=== PATIENT | male | born 1965 | race Caucasian/White ===

== ENCOUNTER 2018-06-15 15:42 | Inpatient (IN) | payer MEDICAID ==
[~2018-06-15] VITALS: Ht 185.4 cm; Wt 89.3 kg
[2018-06-15] MEDS ORDERED: vancomycin/NS 1 GM ADD-VANTAGE 250 ML IV ONE (16:40)
[2018-06-15] MEDS ORDERED: levoFLOXACIN-Levaquin 750MG/D5 150 ML IV ONE (16:40)
[2018-06-15] MEDS ORDERED: normal saline 1000ML IV soln IV ONE (16:40)
[2018-06-15 17:07] LABS: BASOPHILS % (AUTO) 0.1 % (0-1); EOSINOPHILS # (AUTO) 0.1 X10'3 (0-0.9); EOSINOPHILS % (AUTO) 0.6 % (0-6); LYMPHOCYTES # (AUTO) 0.5 X10'3 (1.1-4.8); LYMPHOCYTES % (AUTO) 3.2 % (21-51); MEAN CORPUSCULAR HEMOGLOBIN 29.3 PG (27.0-31.0); MEAN CORPUSCULAR HGB CONC 33.4 % (33.0-36.5); MEAN CORPUSCULAR VOLUME 87.7 FL (78-98); MEAN PLATELET VOLUME 7.9 FL (7.4-10.4); MONOCYTES # (AUTO) 0.7 X10'3 (0-0.9); NEUTROPHILS # (AUTO) 15.2 X10'3 (1.8-7.7); NEUTROPHILS % (AUTO) 92.1 % (42-75); PLATELET COUNT 294 X10'3 (140-440); RED BLOOD COUNT 3.42 X10'6 (4.70-6.10); RED CELL DISTRIBUTION WIDTH 13.9 % (11.5-14.5); WHITE BLOOD COUNT 16.5 X10'3 (4.5-11.0)
[2018-06-15 17:27] LABS: PARTIAL THROMBOPLASTIN TIME 49 SECONDS (22-32); PROTHROMBIN TIME 10.5 SECONDS (9.0-12.0)
[2018-06-15 17:35] LABS: ALANINE AMINOTRANSFERASE 13 U/L (12-78); ALBUMIN 2.1 G/DL (3.4-5.0); ALBUMIN/GLOBULIN RATIO 0.4 (1.1-1.5); ALKALINE PHOSPHATASE 139 IU/L (46-116); ANION GAP 10 (8-16); ASPARTATE AMINO TRANSFERASE 18 U/L (10-37); BILIRUBIN,TOTAL 0.6 MG/DL (0.1-1.0); BLOOD UREA NITROGEN 28 MG/DL (7-18); BUN/CREATININE RATIO 17.7 (5.4-32.0); CALCIUM 8.5 MG/DL (8.5-10.1); CHLORIDE 98 MMOL/L (99-107); CREATININE 1.58 MG/DL (0.60-1.10); GLUCOSE 124 MG/DL (70-104); POTASSIUM 3.6 MMOL/L (3.5-5.1); SODIUM 133 MMOL/L (135-145); TOTAL CARBON DIOXIDE 24.8 MMOL/L (24-32); eGFR 46 ML/MIN
[2018-06-15] MEDS ORDERED: acetaminophen 325mg tablet PO ONE (18:40)
[2018-06-15 18:51] LABS: CLARITY,URINE CLEAR (Clear); COLOR,URINE YELLOW (Yellow); GLUCOSE, URINE NEGATIVE (Neg); KETONES,URINE NEGATIVE (Neg); LEUKOCYTE ESTERASE ,URINE NEGATIVE (Neg); NITRITES, URINE NEGATIVE (Neg); OCCULT BLOOD,URINE NEGATIVE (Neg); PH,URINE 5.5 (4.8-8.0); PROTEIN,URINE 30 mg/dl (Neg)
[2018-06-15 18:58] LABS: UA COLLECTION TYPE CLN CATCH MIDSTREAM
[2018-06-15 19:01] LABS: BACTERIA,URINE 1+ /HPF (Neg); MUCUS STRANDS MODERATE /LPF (Neg); RBC,URINE NONE SEEN /HPF (0-2); SQUAMOUS EPITHELIAL CELL,UR FEW /LPF (FEW); WBC,URINE 0-4 /HPF (0-4)
[2018-06-15 19:03] LABS: AMORPHOUS URATES 1+
[2018-06-15 20:09] LABS: PLATELET ESTIMATE NORMAL; TOTAL CELLS COUNTED 100; TOXIC GRANULATION 1+
[2018-06-15] MEDS ORDERED: acetaminophen 650mg rectal suppository RC PRN (20:25)
[2018-06-15] MEDS ORDERED: diphenhydrAMINE 25mg capsule PO PRN (20:25)
[2018-06-15] MEDS ORDERED: HYDROmorphone 1 mg/ml syringe IV PRN ×2 (20:25)
[2018-06-15] MEDS ORDERED: diphenhydrAMINE 50 mg/ml inj IV PRN (20:25)
[2018-06-15] MEDS ORDERED: morphine 2 MG/ML inj. syringe IV PRN ×2 (20:25)
[2018-06-15] MEDS ORDERED: metoclopramide 5 mg/ml inj IV PRN (20:25)
[2018-06-15] MEDS ORDERED: acetaminophen 325mg tablet PO PRN ×2 (20:25)
[2018-06-15] MEDS ORDERED: magnesium hydroxide 30ml (MOM) UD suspension PO PRN (20:25)
[2018-06-15] MEDS ORDERED: mag hydrox/Alum hydrox/simeth 30ml oral suspension PO PRN (20:25)
[2018-06-15] MEDS ORDERED: ondansetron/PF 4mg/2ml inj IV PRN (20:25)
[2018-06-15] MEDS ORDERED: HYDROcodone/acetaminophen 10/325mg tab PO PRN (20:25)
[2018-06-15] MEDS ORDERED: HYDROcodone/acetaminophen 5mg/325mg tablet PO PRN (20:25)
[2018-06-15] MEDS ORDERED: bisacodyl 10mg suppository rectal RC PRN (20:25)
[2018-06-15] MEDS ORDERED: TETanus/Pertussis (Acell)/Diphther VAC/PF (Tdap-Adult) 0.5ml syringe IMVAC ONE (20:30)
[2018-06-15 20:50] LABS: URINE AMPHETAMINE SCREEN POSITIVE (Neg); URINE BARBITUATE SCREEN NEGATIVE (Neg); URINE BENZODIAZEPINES SCREEN NEGATIVE (Neg); URINE CANNABINOID SCREEN NEGATIVE (Neg); URINE COCAINE SCREEN NEGATIVE (Neg); URINE METHADONE SCREEN NEGATIVE (Neg); URINE OPIATE SCREEN NEGATIVE (Neg); URINE PHENCYCLIDINE SCREEN NEGATIVE (Neg)
[2018-06-15 20:55] LABS: LIPASE 84 U/L (73-393); MAGNESIUM 1.7 MG/DL (1.5-2.4); PHOSPHORUS 1.9 MG/DL (2.3-4.5)
[2018-06-15] MEDS ORDERED: temazepam 15mg capsule PO PRN (21:00)
[2018-06-15 21:17] LABS: HIV ANTIBODY 1&2 RAPID NON-REACTIVE (Neg)
[2018-06-15 22:14] LABS: HEMOGLOBIN A1C 5.7 % (4.5-6.2)
[2018-06-15] MEDS: normal saline 1000ml 1,000 ML IV SCH (22:20)
[2018-06-15 22:37] VITALS: BP 107/68
[2018-06-15] MEDS ORDERED: NO HOME MEDS (23:42)
[2018-06-16 05:44] LABS: BASOPHILS % (AUTO) 0 % (0-1); EOSINOPHILS % (AUTO) 0.1 % (0-6); HEMATOCRIT 28.1 % (42.0-52.0); HEMOGLOBIN 9.4 g/dl (14.0-17.9); LYMPHOCYTES # (AUTO) 0.9 X10'3 (1.1-4.8); MEAN CORPUSCULAR HEMOGLOBIN 29.3 PG (27.0-31.0); MEAN CORPUSCULAR HGB CONC 33.5 % (33.0-36.5); MEAN CORPUSCULAR VOLUME 87.6 FL (78-98); MEAN PLATELET VOLUME 7.9 FL (7.4-10.4); MONOCYTES # (AUTO) 0.7 X10'3 (0-0.9); MONOCYTES % (AUTO) 5.4 % (2-12); NEUTROPHILS # (AUTO) 11.6 X10'3 (1.8-7.7); NEUTROPHILS % (AUTO) 87.5 % (42-75); PLATELET COUNT 254 X10'3 (140-440); RED BLOOD COUNT 3.21 X10'6 (4.70-6.10); RED CELL DISTRIBUTION WIDTH 14.5 % (11.5-14.5); WHITE BLOOD COUNT 13.2 X10'3 (4.5-11.0)
[2018-06-16 05:55] LABS: ALANINE AMINOTRANSFERASE 23 U/L (12-78); ALBUMIN 1.8 G/DL (3.4-5.0); ALBUMIN/GLOBULIN RATIO 0.4 (1.1-1.5); ALKALINE PHOSPHATASE 185 IU/L (46-116); ANION GAP 9 (8-16); ASPARTATE AMINO TRANSFERASE 26 U/L (10-37); BILIRUBIN,TOTAL 0.6 MG/DL (0.1-1.0); BLOOD UREA NITROGEN 19 MG/DL (7-18); BUN/CREATININE RATIO 17.6 (5.4-32.0); CALCIUM 8.2 MG/DL (8.5-10.1); CHLORIDE 106 MMOL/L (99-107); CREATININE 1.08 MG/DL (0.60-1.10); GLUCOSE 112 MG/DL (70-104); POTASSIUM 3.9 MMOL/L (3.5-5.1); SODIUM 141 MMOL/L (135-145); TOTAL CARBON DIOXIDE 26.4 MMOL/L (24-32); TOTAL PROTEIN 6.2 G/DL (6.4-8.2); eGFR 72 ML/MIN
[2018-06-16 05:58] LABS: CHOL/HDL RATIO 7.1 (0.00-4.99); CHOLESTEROL 85 MG/DL (0-200); HDL CHOLESTEROL 12 MG/DL (35-60); LDL CHOLESTEROL 54 MG/DL (50-100); TRIGLYCERIDES 71 MG/DL (20-135)
[2018-06-16 06:00] VITALS: BP 93/57
[2018-06-16] MEDS: heparin, porcine 5000 units/ml vial SQ SCH ×2 (07:12→20:02)
[2018-06-16] MEDS: normal saline 1000ml 1,000 ML IV SCH (07:13)
[2018-06-16 10:00] VITALS: BP 95/63
[2018-06-16] MEDS ORDERED: doxycycline hyclate 100mg tablet.DR PO SCH (17:30)
[2018-06-16] MEDS: DOXYCYCLINE 100MG CAPSULE PO SCH (17:40)
[2018-06-16 19:00] VITALS: BP 112/73
[2018-06-16] MEDS: bacitracin/polymyxin B 15 GM ointment TP SCH (20:00)
[2018-06-16] MEDS ORDERED: Potassium Cl inj 20 MEQ in normal saline 1000ml 1,000 ML IV SCH (20:23)
[2018-06-16 23:00] VITALS: BP 111/66
[2018-06-17 05:41] LABS: BASOPHILS % (AUTO) 0.2 % (0-1); EOSINOPHILS # (AUTO) 0.1 X10'3 (0-0.9); HEMATOCRIT 28.3 % (42.0-52.0); HEMOGLOBIN 9.4 g/dl (14.0-17.9); LYMPHOCYTES # (AUTO) 1.3 X10'3 (1.1-4.8); LYMPHOCYTES % (AUTO) 12.6 % (21-51); MEAN CORPUSCULAR HEMOGLOBIN 29.6 PG (27.0-31.0); MEAN CORPUSCULAR HGB CONC 33.1 % (33.0-36.5); MEAN CORPUSCULAR VOLUME 89.3 FL (78-98); MEAN PLATELET VOLUME 7.9 FL (7.4-10.4); MONOCYTES # (AUTO) 0.8 X10'3 (0-0.9); MONOCYTES % (AUTO) 7.1 % (2-12); NEUTROPHILS # (AUTO) 8.4 X10'3 (1.8-7.7); NEUTROPHILS % (AUTO) 79.1 % (42-75); PLATELET COUNT 312 X10'3 (140-440); RED BLOOD COUNT 3.16 X10'6 (4.70-6.10); RED CELL DISTRIBUTION WIDTH 14.3 % (11.5-14.5); WHITE BLOOD COUNT 10.6 X10'3 (4.5-11.0)
[2018-06-17 06:01] LABS: ALANINE AMINOTRANSFERASE 19 U/L (12-78); ALBUMIN 1.6 G/DL (3.4-5.0); ALBUMIN/GLOBULIN RATIO 0.4 (1.1-1.5); ALKALINE PHOSPHATASE 152 IU/L (46-116); ANION GAP 8 (8-16); ASPARTATE AMINO TRANSFERASE 16 U/L (10-37); BILIRUBIN,TOTAL 0.3 MG/DL (0.1-1.0); BLOOD UREA NITROGEN 16 MG/DL (7-18); BUN/CREATININE RATIO 16.3 (5.4-32.0); CALCIUM 8.5 MG/DL (8.5-10.1); CHLORIDE 107 MMOL/L (99-107); CREATININE 0.98 MG/DL (0.60-1.10); GLUCOSE 90 MG/DL (70-104); POTASSIUM 3.7 MMOL/L (3.5-5.1); SODIUM 141 MMOL/L (135-145); TOTAL PROTEIN 5.9 G/DL (6.4-8.2); eGFR 80 ML/MIN
[2018-06-17 09:12] VITALS: BP 117/78
[2018-06-17] MEDS: heparin, porcine 5000 units/ml vial SQ SCH (09:36)
[2018-06-17] MEDS: DOXYCYCLINE 100MG CAPSULE PO SCH (09:36)
[2018-06-17] MEDS: bacitracin/polymyxin B 15 GM ointment TP SCH (09:37)
[2018-06-17] MEDS ORDERED: LEVO750T21 PO (10:36)
[2018-06-17] MEDS ORDERED: BACI28.32 TP (10:36)
[2018-06-17] MEDS ORDERED: DOXY-224 PO (10:36)
[2018-06-17 12:00] VITALS: BP 106/74
[2018-06-17] MEDS ORDERED: levoFLOXACIN-Levaquin 750MG/D5 150 ML IV SCH (16:00)
== END 2018-06-17 14:10 | disposition home or self-care (01) | DRG 720 ==
LOC: ER 15:43 → ED HOLD 20:23 → EDBEDREQ 21:36 → ORTHO 4S 22:13
PROVIDERS: ADMIT Family Medicine; ATTEND Internal Medicine
DX: A41.9 Sepsis, unspecified organism (principal); N17.9 Acute kidney failure, unspecified; J18.1 Lobar pneumonia, unspecified organism; E87.1 Hypo-osmolality and hyponatremia; D64.9 Anemia, unspecified; L98.499 Non-pressure chronic ulcer of skin of other sites with unspecified severity; E86.0 Dehydration; E86.1 Hypovolemia; F15.10 Other stimulant abuse, uncomplicated; T63.301A Toxic effect of unspecified spider venom, accidental (unintentional), initial encounter; Y92.89 Other specified places as the place of occurrence of the external cause; Z71.51 Drug abuse counseling and surveillance of drug abuser; Z79.899 Other long term (current) drug therapy
CPT/HCPCS: 36415; 71045; 71250; 80053; 80061; 80305; 81001; 83036; 83605; 83690; 83735; 83880; 84100; 84145; 84443; 84484; 85025; 85610; 85730; 86703; 87040; 87070; 87502; 87503; 90715; 93005; 93306; 94760; 96365; 96367; 99285; G0378; J1644; J1956; J3370; J3480; J7030

== ENCOUNTER 2018-07-10 18:06 | Inpatient (IN) | payer MEDICAID ==
[~2018-07-10] VITALS: Ht 182.9 cm; Wt 90.8 kg
[~2018-07-10 18:06] MED LIST: BACI28.32 TP; DOXY-224 PO
[2018-07-10] MEDS ORDERED: acetaminophen 325mg tablet PO ONE (18:20)
[2018-07-10] MEDS ORDERED: normal saline 1000ML IV soln IV ONE (18:30)
[2018-07-10 18:41] LABS: BASOPHILS % (AUTO) 0.1 % (0-1); EOSINOPHILS # (AUTO) 0.1 X10'3 (0-0.9); EOSINOPHILS % (AUTO) 1.7 % (0-6); HEMATOCRIT 35.1 % (42.0-52.0); HEMOGLOBIN 11.8 g/dl (14.0-17.9); LYMPHOCYTES # (AUTO) 0.4 X10'3 (1.1-4.8); LYMPHOCYTES % (AUTO) 5.4 % (21-51); MEAN CORPUSCULAR HGB CONC 33.4 % (33.0-36.5); MEAN CORPUSCULAR VOLUME 86.8 FL (78-98); MEAN PLATELET VOLUME 7.4 FL (7.4-10.4); MONOCYTES # (AUTO) 0.3 X10'3 (0-0.9); MONOCYTES % (AUTO) 3.6 % (2-12); NEUTROPHILS # (AUTO) 6.6 X10'3 (1.8-7.7); NEUTROPHILS % (AUTO) 89.2 % (42-75); PLATELET COUNT 222 X10'3 (140-440); RED BLOOD COUNT 4.05 X10'6 (4.70-6.10); RED CELL DISTRIBUTION WIDTH 13.8 % (11.5-14.5); WHITE BLOOD COUNT 7.4 X10'3 (4.5-11.0)
[2018-07-10 19:05] LABS: ALANINE AMINOTRANSFERASE 20 U/L (12-78); ALBUMIN 3.5 G/DL (3.4-5.0); ALBUMIN/GLOBULIN RATIO 0.8 (1.1-1.5); ALKALINE PHOSPHATASE 97 IU/L (46-116); ANION GAP 9 (8-16); ASPARTATE AMINO TRANSFERASE 16 U/L (10-37); BILIRUBIN,TOTAL 0.4 MG/DL (0.1-1.0); BLOOD UREA NITROGEN 18 MG/DL (7-18); BUN/CREATININE RATIO 14.4 (5.4-32.0); CHLORIDE 100 MMOL/L (99-107); CREATININE 1.25 MG/DL (0.60-1.10); GLUCOSE 101 MG/DL (70-104); POTASSIUM 4.1 MMOL/L (3.5-5.1); SODIUM 137 MMOL/L (135-145); TOTAL CARBON DIOXIDE 28.3 MMOL/L (24-32); eGFR 61 ML/MIN
[2018-07-10] MEDS ORDERED: levoFLOXACIN-Levaquin 750MG/D5 150 ML IV ONE (19:05)
[2018-07-10] MEDS ORDERED: LATA2.5D2 OP (20:17)
[2018-07-10] MEDS ORDERED: mag hydrox/Alum hydrox/simeth 30ml oral suspension PO PRN (20:30)
[2018-07-10] MEDS ORDERED: HYDROcodone/acetaminophen 5mg/325mg tablet PO PRN (20:30)
[2018-07-10] MEDS ORDERED: ondansetron/PF 4mg/2ml inj IV PRN (20:30)
[2018-07-10] MEDS ORDERED: magnesium hydroxide 30ml (MOM) UD suspension PO PRN (20:30)
[2018-07-10 21:11] LABS: CLARITY,URINE CLEAR (Clear); COLOR,URINE YELLOW (Yellow); GLUCOSE, URINE NEGATIVE (Neg); KETONES,URINE NEGATIVE (Neg); LEUKOCYTE ESTERASE ,URINE NEGATIVE (Neg); NITRITES, URINE NEGATIVE (Neg); OCCULT BLOOD,URINE NEGATIVE (Neg); PH,URINE 5.5 (4.8-8.0); PROTEIN,URINE NEGATIVE (Neg); UROBILINOGEN,URINE 0.2 E.U/dL (0.2-1.0)
[2018-07-10 21:18] LABS: UA COLLECTION TYPE CLN CATCH MIDSTREAM
[2018-07-10] MEDS: normal saline 1000ml 1,000 ML IV SCH ×2 (21:18→22:03)
[2018-07-10 22:00] VITALS: BP 107/54
[2018-07-11] VITALS: BP 101/50
[2018-07-11] MEDS: acetaminophen 325mg tablet PO PRN ×3 (03:58→22:44)
[2018-07-11 04:00] VITALS: BP 121/71
[2018-07-11] MEDS: clindamycin 300mg/D5W 50mL 50 ML IV SCH ×2 (05:14→09:39)
[2018-07-11] MEDS: normal saline 1000ml 1,000 ML IV SCH (05:15)
[2018-07-11 06:02] LABS: BASOPHILS % (AUTO) 0.4 % (0-1); HEMATOCRIT 28.7 % (42.0-52.0); HEMOGLOBIN 9.7 g/dl (14.0-17.9); LYMPHOCYTES # (AUTO) 0.6 X10'3 (1.1-4.8); LYMPHOCYTES % (AUTO) 15.1 % (21-51); MEAN CORPUSCULAR HEMOGLOBIN 29.3 PG (27.0-31.0); MEAN CORPUSCULAR HGB CONC 33.9 % (33.0-36.5); MEAN CORPUSCULAR VOLUME 86.4 FL (78-98); MEAN PLATELET VOLUME 7.9 FL (7.4-10.4); MONOCYTES # (AUTO) 0.3 X10'3 (0-0.9); NEUTROPHILS # (AUTO) 2.9 X10'3 (1.8-7.7); NEUTROPHILS % (AUTO) 76.5 % (42-75); PLATELET COUNT 154 X10'3 (140-440); RED BLOOD COUNT 3.32 X10'6 (4.70-6.10); RED CELL DISTRIBUTION WIDTH 13.7 % (11.5-14.5); WHITE BLOOD COUNT 3.8 X10'3 (4.5-11.0)
[2018-07-11 06:30] LABS: ALANINE AMINOTRANSFERASE 15 U/L (12-78); ALBUMIN 2.7 G/DL (3.4-5.0); ALBUMIN/GLOBULIN RATIO 0.7 (1.1-1.5); ALKALINE PHOSPHATASE 85 IU/L (46-116); ANION GAP 9 (8-16); ASPARTATE AMINO TRANSFERASE 17 U/L (10-37); BILIRUBIN,TOTAL 0.4 MG/DL (0.1-1.0); BLOOD UREA NITROGEN 13 MG/DL (7-18); BUN/CREATININE RATIO 12.1 (5.4-32.0); CALCIUM 7.9 MG/DL (8.5-10.1); CHLORIDE 102 MMOL/L (99-107); CREATININE 1.07 MG/DL (0.60-1.10); GLUCOSE 100 MG/DL (70-104); POTASSIUM 3.6 MMOL/L (3.5-5.1); SODIUM 135 MMOL/L (135-145); TOTAL CARBON DIOXIDE 24.3 MMOL/L (24-32); TOTAL PROTEIN 6.5 G/DL (6.4-8.2); eGFR 73 ML/MIN
[2018-07-11 07:27] VITALS: BP 108/62
[2018-07-11] MEDS: heparin, porcine 5000 units/ml vial SQ SCH ×2 (09:39→20:34)
[2018-07-11 11:05] VITALS: BP 125/81
[2018-07-11] MEDS ORDERED: magnesium 4gm in 100ml NS 100 ML IV PRN (12:00)
[2018-07-11] MEDS ORDERED: potassium Cl 20 mEq SR tablet PO PRN ×2 (12:00)
[2018-07-11] MEDS ORDERED: potassium Cl 40MEQ/NS 500ml 500 ML IV PRN ×2 (12:00)
[2018-07-11] MEDS ORDERED: magnesium Cl slow-release 64mg tablet PO PRN (12:00)
[2018-07-11] MEDS ORDERED: ipratropium/albuterol 3ml nebule NEB PRN (12:00)
[2018-07-11 19:30] VITALS: BP 122/82
[2018-07-11] MEDS: levoFLOXACIN-Levaquin 750MG/D5 150 ML IV SCH (20:32)
[2018-07-11] MEDS: lactobacillus rhamnosus 10,000 MMU CELLS/CAPSULE PO SCH (20:35)
[2018-07-11] MEDS: thiamine 100mg tablet PO SCH (20:35)
[2018-07-11] MEDS: latanoprost 0.005% 2.5ml ophthalmic drops EACHEYE SCH (21:00)
[2018-07-12] VITALS: BP 106/67
[2018-07-12 05:27] LABS: BASOPHILS % (AUTO) 0.9 % (0-1); EOSINOPHILS % (AUTO) 0.1 % (0-6); HEMATOCRIT 34.9 % (42.0-52.0); HEMOGLOBIN 11.8 g/dl (14.0-17.9); LYMPHOCYTES # (AUTO) 1.2 X10'3 (1.1-4.8); LYMPHOCYTES % (AUTO) 35.1 % (21-51); MEAN CORPUSCULAR HEMOGLOBIN 29.2 PG (27.0-31.0); MEAN CORPUSCULAR HGB CONC 33.9 % (33.0-36.5); MEAN CORPUSCULAR VOLUME 86.1 FL (78-98); MEAN PLATELET VOLUME 7.7 FL (7.4-10.4); MONOCYTES # (AUTO) 0.3 X10'3 (0-0.9); NEUTROPHILS # (AUTO) 1.8 X10'3 (1.8-7.7); NEUTROPHILS % (AUTO) 53.9 % (42-75); PLATELET COUNT 165 X10'3 (140-440); RED BLOOD COUNT 4.05 X10'6 (4.70-6.10); RED CELL DISTRIBUTION WIDTH 14.1 % (11.5-14.5); WHITE BLOOD COUNT 3.3 X10'3 (4.5-11.0)
[2018-07-12 05:37] LABS: ALBUMIN 2.8 G/DL (3.4-5.0); ANION GAP 8 (8-16); BLOOD UREA NITROGEN 11 MG/DL (7-18); BUN/CREATININE RATIO 9.6 (5.4-32.0); CALCIUM 8.5 MG/DL (8.5-10.1); CHLORIDE 101 MMOL/L (99-107); CREATININE 1.14 MG/DL (0.60-1.10); GLUCOSE 93 MG/DL (70-104); MAGNESIUM 1.7 MG/DL (1.5-2.4); SODIUM 138 MMOL/L (135-145); TOTAL CARBON DIOXIDE 28.6 MMOL/L (24-32); eGFR 67 ML/MIN
[2018-07-12] MEDS: K and/or MAG REPLACEMENT MC SCH (06:35)
[2018-07-12 06:54] VITALS: BP 116/73
[2018-07-12] MEDS: lactobacillus rhamnosus 10,000 MMU CELLS/CAPSULE PO SCH ×2 (09:07→20:16)
[2018-07-12] MEDS: multivitamins, therapeutics tablet PO SCH (09:08)
[2018-07-12] MEDS: heparin, porcine 5000 units/ml vial SQ SCH ×2 (09:08→20:18)
[2018-07-12] MEDS: thiamine 100mg tablet PO SCH ×2 (09:08→20:16)
[2018-07-12 11:35] VITALS: BP 105/76
[2018-07-12 19:30] VITALS: BP 112/69
[2018-07-12] MEDS: latanoprost 0.005% 2.5ml ophthalmic drops EACHEYE SCH (20:18)
[2018-07-12] MEDS: levoFLOXACIN-Levaquin 750MG/D5 150 ML IV SCH (21:14)
[2018-07-13] VITALS: BP 106/67
[2018-07-13 05:04] LABS: BASOPHILS % (AUTO) 0.4 % (0-1); EOSINOPHILS # (AUTO) 0.1 X10'3 (0-0.9); HEMATOCRIT 37.2 % (42.0-52.0); HEMOGLOBIN 12.6 g/dl (14.0-17.9); LYMPHOCYTES # (AUTO) 1.2 X10'3 (1.1-4.8); LYMPHOCYTES % (AUTO) 39.2 % (21-51); MEAN CORPUSCULAR HEMOGLOBIN 29.3 PG (27.0-31.0); MEAN CORPUSCULAR HGB CONC 33.9 % (33.0-36.5); MEAN CORPUSCULAR VOLUME 86.4 FL (78-98); MEAN PLATELET VOLUME 7.9 FL (7.4-10.4); MONOCYTES # (AUTO) 0.2 X10'3 (0-0.9); MONOCYTES % (AUTO) 7.7 % (2-12); NEUTROPHILS # (AUTO) 1.4 X10'3 (1.8-7.7); NEUTROPHILS % (AUTO) 47.7 % (42-75); PLATELET COUNT 179 X10'3 (140-440); RED CELL DISTRIBUTION WIDTH 13.8 % (11.5-14.5)
[2018-07-13 05:08] LABS: ALBUMIN 2.8 G/DL (3.4-5.0); ANION GAP 7 (8-16); BLOOD UREA NITROGEN 17 MG/DL (7-18); CALCIUM 8.9 MG/DL (8.5-10.1); CHLORIDE 103 MMOL/L (99-107); CREATININE 1.06 MG/DL (0.60-1.10); GLUCOSE 104 MG/DL (70-104); MAGNESIUM 1.7 MG/DL (1.5-2.4); POTASSIUM 3.7 MMOL/L (3.5-5.1); SODIUM 138 MMOL/L (135-145); TOTAL CARBON DIOXIDE 28.3 MMOL/L (24-32); eGFR 73 ML/MIN
[2018-07-13 05:44] LABS: TOTAL CELLS COUNTED 100
[2018-07-13 05:45] LABS: PLATELET ESTIMATE NORMAL
[2018-07-13 07:00] VITALS: BP 107/62
[2018-07-13] MEDS: thiamine 100mg tablet PO SCH ×2 (07:07→20:41)
[2018-07-13] MEDS: multivitamins, therapeutics tablet PO SCH (07:07)
[2018-07-13] MEDS: lactobacillus rhamnosus 10,000 MMU CELLS/CAPSULE PO SCH (07:08)
[2018-07-13] MEDS: heparin, porcine 5000 units/ml vial SQ SCH ×2 (07:08→20:42)
[2018-07-13] MEDS: K and/or MAG REPLACEMENT MC SCH (08:00)
[2018-07-13] MEDS ORDERED: nicotine 21mg patch - 24 hr TD SCH (08:00)
[2018-07-13 11:25] VITALS: BP 103/64
[2018-07-13 19:00] VITALS: BP 102/67
[2018-07-13] MEDS: latanoprost 0.005% 2.5ml ophthalmic drops EACHEYE SCH (22:35)
[2018-07-14 04:56] LABS: BASOPHILS % (AUTO) 0.2 % (0-1); EOSINOPHILS # (AUTO) 0.3 X10'3 (0-0.9); EOSINOPHILS % (AUTO) 8.9 % (0-6); HEMATOCRIT 36.3 % (42.0-52.0); HEMOGLOBIN 12.3 g/dl (14.0-17.9); LYMPHOCYTES # (AUTO) 1.3 X10'3 (1.1-4.8); LYMPHOCYTES % (AUTO) 36.3 % (21-51); MEAN CORPUSCULAR HEMOGLOBIN 29.1 PG (27.0-31.0); MEAN CORPUSCULAR VOLUME 85.7 FL (78-98); MEAN PLATELET VOLUME 7.5 FL (7.4-10.4); MONOCYTES # (AUTO) 0.2 X10'3 (0-0.9); MONOCYTES % (AUTO) 6.6 % (2-12); NEUTROPHILS # (AUTO) 1.7 X10'3 (1.8-7.7); PLATELET COUNT 192 X10'3 (140-440); RED BLOOD COUNT 4.24 X10'6 (4.70-6.10); RED CELL DISTRIBUTION WIDTH 13.8 % (11.5-14.5); WHITE BLOOD COUNT 3.6 X10'3 (4.5-11.0)
[2018-07-14 05:09] LABS: GLUCOSE 107 MG/DL (70-104); POTASSIUM 3.6 MMOL/L (3.5-5.1); SODIUM 139 MMOL/L (135-145)
[2018-07-14 05:10] LABS: ANION GAP 10 (8-16); BLOOD UREA NITROGEN 17 MG/DL (7-18); BUN/CREATININE RATIO 19.1 (5.4-32.0); CALCIUM 8.9 MG/DL (8.5-10.1); CHLORIDE 104 MMOL/L (99-107); CREATININE 0.89 MG/DL (0.60-1.10); MAGNESIUM 1.7 MG/DL (1.5-2.4); TOTAL CARBON DIOXIDE 25.5 MMOL/L (24-32); eGFR 90 ML/MIN
[2018-07-14 07:29] VITALS: BP 102/64
[2018-07-14] MEDS: K and/or MAG REPLACEMENT MC SCH (08:00)
[2018-07-14] MEDS: thiamine 100mg tablet PO SCH (08:04)
[2018-07-14] MEDS: heparin, porcine 5000 units/ml vial SQ SCH (08:04)
[2018-07-14] MEDS: multivitamins, therapeutics tablet PO SCH (08:04)
[2018-07-14 11:00] VITALS: BP 96/55
[2018-07-14] MEDS ORDERED: levoFLOXACIN 750MG TABLET PO SCH (11:00)
[2018-07-14] MEDS ORDERED: LEVO750T46 PO (11:52)
[2018-07-14] MEDS ORDERED: MULT-1179 PO (11:52)
[2018-07-14] MEDS ORDERED: THI100T PO (11:52)
== END 2018-07-14 14:40 | disposition home or self-care (01) | DRG 720 ==
LOC: ER 18:07 → SUR 3N 20:34 → CMPBEDREQ 07-12 19:43 → SUR 3N 07-13 18:22
PROVIDERS: ADMIT Internal Medicine; ATTEND Hospitalist
DX: A41.9 Sepsis, unspecified organism (principal); J18.9 Pneumonia, unspecified organism; F15.90 Other stimulant use, unspecified, uncomplicated; F17.200 Nicotine dependence, unspecified, uncomplicated; H40.9 Unspecified glaucoma; Z59.0 Homelessness; Z71.6 Tobacco abuse counseling
CPT/HCPCS: 36415; 71046; 80048; 80053; 81003; 83605; 83735; 84145; 85025; 87040; 87070; 87502; 87503; 94640; 94667; 94668; 94760; 99406; G0378; J1644; J1956; J7030; X5958

== ENCOUNTER 2019-04-15 17:10 | Emergency (ER) | payer MEDICAID ==
[~2019-04-15] VITALS: Ht 182.9 cm; Wt 95.5 kg
[~2019-04-15 17:10] MED LIST changes: -BACI28.32 TP; -DOXY-224 PO; +LATA2.5D2 OP; +LEVO750T46 PO; +MULT-1179 PO; +THI100T PO
[2019-04-15 17:45] VITALS: BP 124/79
[2019-04-15] MEDS ORDERED: CEPH500C5 PO (18:00)
== END 2019-04-15 18:24 | disposition home or self-care (01) ==
LOC: ER 17:10
DX: L03.115 Cellulitis of right lower limb (principal); L03.116 Cellulitis of left lower limb; F15.90 Other stimulant use, unspecified, uncomplicated; F17.200 Nicotine dependence, unspecified, uncomplicated; Z56.0 Unemployment, unspecified; Z79.2 Long term (current) use of antibiotics; Z79.899 Other long term (current) drug therapy
CPT/HCPCS: 99283

== ENCOUNTER 2019-08-23 18:18 | Emergency (ER) | payer MEDICAID ==
[~2019-08-23] VITALS: Ht 182.9 cm; Wt 102.3 kg
[~2019-08-23 18:18] MED LIST changes: +CEPH500C5 PO
[2019-08-23] MEDS ORDERED: HYDROcodone/acetaminophen 5mg/325mg tablet PO ONE (20:30)
[2019-08-23] MEDS ORDERED: triamcinolone acetonide 40mg/ml inj IM ONE (20:30)
[2019-08-23] MEDS ORDERED: diphenhydrAMINE 25mg capsule PO ONE (20:30)
[2019-08-23 21:04] LABS: BASOPHILS % (AUTO) 0.6 % (0-1); EOSINOPHILS # (AUTO) 0.3 X10'3 (0-0.9); EOSINOPHILS % (AUTO) 4.8 % (0-6); HEMATOCRIT 37.6 % (42.0-52.0); HEMOGLOBIN 12.8 g/dl (14.0-17.9); LYMPHOCYTES % (AUTO) 27.4 % (21-51); MEAN CORPUSCULAR HEMOGLOBIN 29.3 PG (27.0-31.0); MEAN PLATELET VOLUME 6.8 FL (7.4-10.4); MONOCYTES # (AUTO) 0.7 X10'3 (0-0.9); NEUTROPHILS # (AUTO) 4.1 X10'3 (1.8-7.7); NEUTROPHILS % (AUTO) 57.2 % (42-75); PLATELET COUNT 365 X10'3 (140-440); RED BLOOD COUNT 4.38 X10'6 (4.70-6.10); RED CELL DISTRIBUTION WIDTH 13.8 % (11.5-14.5); WHITE BLOOD COUNT 7.2 X10'3 (4.5-11.0)
[2019-08-23 21:17] LABS: ALANINE AMINOTRANSFERASE 38 U/L (12-78); ALBUMIN 3.3 G/DL (3.4-5.0); ALBUMIN/GLOBULIN RATIO 0.8 (1.1-1.5); ALKALINE PHOSPHATASE 121 IU/L (46-116); ANION GAP 8 (8-16); ASPARTATE AMINO TRANSFERASE 21 U/L (10-37); BILIRUBIN,TOTAL 0.2 MG/DL (0.1-1.0); BLOOD UREA NITROGEN 19 MG/DL (7-18); BUN/CREATININE RATIO 16.5 (5.4-32.0); CALCIUM 8.7 MG/DL (8.5-10.1); CHLORIDE 107 MMOL/L (99-107); CREATININE 1.15 MG/DL (0.60-1.10); GLUCOSE 96 MG/DL (70-104); SODIUM 142 MMOL/L (135-145); TOTAL CARBON DIOXIDE 27.3 MMOL/L (24-32); TOTAL PROTEIN 7.7 G/DL (6.4-8.2); eGFR 67 ML/MIN
--- NOTE | 2019-08-23 21:50 | NUR ---
plan updated with pt . will continue to reassess.
--- NOTE | 2019-08-23 22:00 | NUR ---
GILBERTO [phone]
[2019-08-23] MEDS ORDERED: DIPH25CA83 PO (22:28)
[2019-08-23] MEDS ORDERED: PRED20TA PO (22:28)
[2019-08-23] MEDS ORDERED: DOXY100C2 PO (22:28)
[2019-08-23 22:39] VITALS: BP 123/75
[2019-08-25 07:16] LABS: RPR Non Reactive (Non Reactive)
== END 2019-08-23 22:35 | disposition home or self-care (01) ==
LOC: ER 18:18
DX: L03.116 Cellulitis of left lower limb (principal); L03.115 Cellulitis of right lower limb; R21 Rash and other nonspecific skin eruption; F15.90 Other stimulant use, unspecified, uncomplicated; F17.200 Nicotine dependence, unspecified, uncomplicated; Z56.0 Unemployment, unspecified; Z87.01 Personal history of pneumonia (recurrent); Z79.899 Other long term (current) drug therapy
CPT/HCPCS: 36415; 80053; 83605; 83880; 84145; 85025; 86592; 87040; 96372; 99283; J3301; Q0163

== ENCOUNTER 2020-06-17 08:46 | Emergency (ER) | payer MEDICAID ==
[~2020-06-17] VITALS: Ht 182.9 cm; Wt 100.0 kg
[~2020-06-17 08:46] MED LIST changes: -CEPH500C5 PO; +DIPH25CA83 PO; +LATA2.5D14 OP; -LATA2.5D2 OP; -MULT-1179 PO; +MULT-25 PO
[2020-06-17] MEDS ORDERED: methylPREDNISolone sod succ 125mg/2ml vial IV ONE ×2 (09:00→10:10)
[2020-06-17] MEDS ORDERED: ipratropium/albuterol 3ml nebule NEB ONE (09:00)
[2020-06-17] MEDS ORDERED: albuterol 2.5 MG/3 ML nebule NEB ONE (09:00)
[2020-06-17 09:38] LABS: ALANINE AMINOTRANSFERASE 53 U/L (12-78); ALBUMIN 3.6 G/DL (3.4-5.0); ALBUMIN/GLOBULIN RATIO 0.8 (1.1-1.5); ALKALINE PHOSPHATASE 106 IU/L (46-116); ANION GAP 8 (8-16); ASPARTATE AMINO TRANSFERASE 33 U/L (10-37); BILIRUBIN,TOTAL 0.4 MG/DL (0.1-1.0); BLOOD UREA NITROGEN 23 MG/DL (7-18); BUN/CREATININE RATIO 18.5 (5.4-32.0); CALCIUM 8.9 MG/DL (8.5-10.1); CHLORIDE 104 MMOL/L (99-107); CREATININE 1.24 MG/DL (0.60-1.10); GLUCOSE 126 MG/DL (70-104); POTASSIUM 4.7 MMOL/L (3.5-5.1); SODIUM 140 MMOL/L (135-145); TOTAL CARBON DIOXIDE 28.2 MMOL/L (24-32); TOTAL PROTEIN 8.1 G/DL (6.4-8.2); eGFR 61 ML/MIN
[2020-06-17 09:39] LABS: BASOPHILS % (AUTO) 0.5 % (0-1); EOSINOPHILS # (AUTO) 0.1 X10'3 (0-0.9); EOSINOPHILS % (AUTO) 1.9 % (0-6); HEMATOCRIT 39.9 % (42.0-52.0); HEMOGLOBIN 13.6 g/dl (14.0-17.9); LYMPHOCYTES # (AUTO) 1.7 X10'3 (1.1-4.8); LYMPHOCYTES % (AUTO) 24.7 % (21-51); MEAN CORPUSCULAR HEMOGLOBIN 29.8 PG (27.0-31.0); MEAN CORPUSCULAR HGB CONC 34.2 g/dL (33.0-36.5); MEAN CORPUSCULAR VOLUME 87.3 FL (78-98); MEAN PLATELET VOLUME 7.3 FL (7.4-10.4); MONOCYTES # (AUTO) 0.6 X10'3 (0-0.9); MONOCYTES % (AUTO) 8.1 % (2-12); NEUTROPHILS # (AUTO) 4.5 X10'3 (1.8-7.7); NEUTROPHILS % (AUTO) 64.8 % (42-75); PLATELET COUNT 304 X10'3 (140-440); RED BLOOD COUNT 4.57 X10'6 (4.70-6.10); RED CELL DISTRIBUTION WIDTH 13.6 % (11.5-14.5); WHITE BLOOD COUNT 6.9 X10'3 (4.5-11.0)
[2020-06-17] MEDS ORDERED: racepinephrine 11.25mg/0.5ml nebule ONE (10:06)
[2020-06-17] MEDS ORDERED: racepinephrine 11.25mg/0.5ml nebule IH ONE (10:10)
--- NOTE | 2020-06-17 10:14 | NUR ---
GAVE RACEPINEPINE PER SVN PER DR VELA ORDER
[2020-06-17] MEDS ORDERED: iohexol 300mg/ml 100ml inj. ONE (10:47)
--- NOTE | 2020-06-17 12:16 | NUR ---
Patient is resting comfortably in bed with no distress.
--- NOTE | 2020-06-17 12:22 | NUR ---
Spoke to RT about pending nebulizer treatment.
--- NOTE | 2020-06-17 13:31 | NUR ---
Susie Nguyen [phone]
--- NOTE | 2020-06-17 15:15 | NUR ---
PATIENT REQUESTS WATER AND TO WALK AROUND ED. PATIENT INFORMED THAT AT THIS TIME IT IS NOT SAFE TO BE WALKING AROUND IN THE ER AND THAT HE MUST REMAIN NPO UNTIL SEEN BY ENT. PATIENT VERBALIZES UNDERSTANDING BUT DOES NOT APPEAR HAPPY ABOUT IT.
[2020-06-17] MEDS ORDERED: PRED20TA PO (16:22)
--- NOTE | 2020-06-17 16:25 | NUR ---
Patient requests update on POC which is provided. He states that he cannot go to [facility] and that he must be able to return to work or lose his place of living. Patient instructed that he could potentially if he leaves before his workup and treatment is completed which he verbalizes understanding. Spoke to Dr. Mello who also spoke to the patient regarding the risks of leaving too soon and attempted to persuade the patient to stay unsuccessfully. Patient was given explicit instructions for need to return to ED for worsening of symptoms which may very well happen. Spoke to Dr. Mello about possible prescriptions to go home with to help with the narrowing of his vocal cords.
[2020-06-17 16:37] VITALS: BP 156/100
== END 2020-06-17 16:41 | disposition left against medical advice (07) ==
LOC: ER 08:46
DX: R06.1 Stridor (principal); R06.02 Shortness of breath; R05 Cough; G43.909 Migraine, unspecified, not intractable, without status migrainosus; F15.90 Other stimulant use, unspecified, uncomplicated; Z87.01 Personal history of pneumonia (recurrent); Z56.0 Unemployment, unspecified; Z79.2 Long term (current) use of antibiotics; Z79.899 Other long term (current) drug therapy
CPT/HCPCS: 36415; 70491; 71045; 80053; 83880; 84484; 85025; 93005; 94640; 96374; 96376; 99291; 99292; J2930; Q9967; 94760

== ENCOUNTER 2021-06-29 23:04 | Inpatient (IN) | payer MEDICARE, MEDICAID ==
[~2021-06-29] VITALS: Ht 182.9 cm; Wt 113.0 kg
[~2021-06-29 23:04] MED LIST changes: +LATA2.5D14 EACHEYE; -LATA2.5D14 OP
[2021-06-29] MEDS ORDERED: piperacillin/tazo 4.5gm/100ml 100 ML IV ONE (23:47)
[2021-06-29] MEDS ORDERED: VANCOmycin 1250MG/NS 250ml Bag 250 ML IV ONE (23:48)
[2021-06-30 00:13] LABS: BASOPHILS % (AUTO) 0.4 % (0-1); EOSINOPHILS # (AUTO) 0.1 X10'3 (0-0.9); EOSINOPHILS % (AUTO) 0.5 % (0-6); HEMATOCRIT 38.1 % (42.0-52.0); LYMPHOCYTES # (AUTO) 1.6 X10'3 (1.1-4.8); LYMPHOCYTES % (AUTO) 15.9 % (21-51); MEAN CORPUSCULAR HEMOGLOBIN 29.7 PG (27.0-31.0); MEAN CORPUSCULAR HGB CONC 34.1 g/dL (33.0-36.5); MEAN CORPUSCULAR VOLUME 87.3 FL (78-98); MEAN PLATELET VOLUME 7.1 FL (7.4-10.4); MONOCYTES # (AUTO) 0.8 X10'3 (0-0.9); MONOCYTES % (AUTO) 7.8 % (2-12); NEUTROPHILS # (AUTO) 7.8 X10'3 (1.8-7.7); NEUTROPHILS % (AUTO) 75.4 % (42-75); PLATELET COUNT 242 X10'3 (140-440); RED BLOOD COUNT 4.36 X10'6 (4.70-6.10); RED CELL DISTRIBUTION WIDTH 13.8 % (11.5-14.5); WHITE BLOOD COUNT 10.4 X10'3 (4.5-11.0)
[2021-06-30 00:24] LABS: ANION GAP 9 (8-16); BLOOD UREA NITROGEN 11 MG/DL (7-18); BUN/CREATININE RATIO 8.3 (5.4-32.0); CALCIUM 8.4 MG/DL (8.5-10.1); CHLORIDE 100 MMOL/L (99-107); CREATININE 1.33 MG/DL (0.60-1.10); GLUCOSE 138 MG/DL (70-104); POTASSIUM 3.9 MMOL/L (3.5-5.1); SODIUM 136 MMOL/L (135-145); TOTAL CARBON DIOXIDE 27.2 MMOL/L (24-32); eGFR 56 ML/MIN
[2021-06-30] MEDS ORDERED: iohexol 300mg/ml 100ml inj. ONE (01:09)
[2021-06-30] MEDS ORDERED: mag hydrox/Alum hydrox/simeth 30ml oral suspension PO PRN (03:30)
[2021-06-30] MEDS ORDERED: acetaminophen 325mg tablet PO PRN (03:30)
[2021-06-30] MEDS ORDERED: magnesium hydroxide 30ml (MOM) UD suspension PO PRN (03:30)
[2021-06-30] MEDS ORDERED: ondansetron/PF 4mg/2ml inj IV PRN (03:30)
[2021-06-30] MEDS ORDERED: DORZ10DR2 RIGHTEYE (03:31)
[2021-06-30] MEDS ORDERED: DORZ10DR10 EACHEYE (03:42)
[2021-06-30] MEDS: penicillin G potassium inj 3,000,000 UNIT in normal saline 100ml IV soln 100 ML IV SCH ×3 (04:24→12:59)
[2021-06-30 08:00] VITALS: BP 139/95
[2021-06-30] MEDS ORDERED: heparin, porcine 5000 units/ml vial SQ SCH (08:00)
[2021-06-30] MEDS ORDERED: dorzolamide/timolol (Cosopt) ophthalmic drops 10ml bottle EACHEYE SCH (08:00)
[2021-06-30] MEDS ORDERED: docusate sod 100mg capsule PO SCH (08:00)
[2021-06-30 11:32] VITALS: BP 127/88
[2021-06-30] MEDS ORDERED: pneumococcal 23-VAL P-sac vacc 25 mcg/0.5ml vial IMVAC ONE (13:00)
[2021-06-30] MEDS ORDERED: piperacillin/tazo 3.375gm/50ml 50 ML IV SCH (13:24)
[2021-06-30] MEDS ORDERED: vancomycin/NS 1 GM ADD-VANTAGE 250 ML IV SCH (14:00)
--- NOTE | 2021-06-30 17:53 | NUR ---
PAGER ID: [phone] MESSAGE: [place] [phone]
--- NOTE | 2021-06-30 18:03 | NUR ---
IVS DC"D, CANNULA INTACT, PRESSURE BANDAGE APPLIED. Pt. took his belongings. Signed ama paperwork. Escorted by staff to downstairs exit.
[2021-06-30] MEDS ORDERED: latanoprost 0.005% 2.5ml ophthalmic drops EACHEYE SCH (21:00)
[2021-07-01] MEDS ORDERED: VANCOMYCIN LEVEL IV ONE (13:30)
[2021-07-02] MEDS ORDERED: pneumococcal 23-VAL P-sac vacc 25 mcg/0.5ml vial IMVAC ONE (09:00)
== END 2021-06-30 17:59 | disposition left against medical advice (07) | DRG 603 ==
LOC: ER 23:04 → ED HOLD 06-30 03:32 → SUR 3N 06-30 07:25
PROVIDERS: ADMIT Internal Medicine; ATTEND Internal Medicine
PROC: BN251ZZ Computerized Tomography (CT Scan) of Facial Bones using Low Osmolar Contrast (ICD-10-PCS; principal; 2021-06-30)
DX: A46 Erysipelas (principal); L03.211 Cellulitis of face; F15.90 Other stimulant use, unspecified, uncomplicated; Z53.29 Procedure and treatment not carried out because of patient's decision for other reasons; I25.2 Old myocardial infarction; Z56.0 Unemployment, unspecified; Z79.899 Other long term (current) drug therapy
CPT/HCPCS: 36415; 70487; 80048; 83605; 85025; 87040; 87081; 99285; G0378; J1644; J2540; J2543; J3370; Q9967